=== PATIENT | male | born 1940 | race Caucasian/White ===

== ENCOUNTER 2018-08-25 06:17 | Emergency (ER) | payer SELFPAY ==
[2018-08-25] MEDS ORDERED: NORepinephrine 8MG/250 ML (PMX 250 ML (06:29)
[2018-08-25] MEDS ORDERED: EPINEPHrine 0.1 MG/ML SYG (07:00)
[2018-08-25] MEDS ORDERED: NA BICARBONATE 8.4% 50 ML SYG (07:00)
[2018-08-25] MEDS ORDERED: AMIODARONE 150 MG INJ (07:00)
== END 2018-08-25 11:56 | disposition expired ==
LOC: E/R 11:56
DX: I46.9 Cardiac arrest, cause unspecified (principal); R40.2432 Glasgow coma scale score 3-8, at arrival to emergency department
CPT/HCPCS: 31500; 82962; 92950; 94002; 99291-25